=== PATIENT | female | born 1940 | race Caucasian/White ===

== ENCOUNTER → 2016-10-18 | Outpatient (CLI) | payer OTHER ==
[2016-10-18 07:51] LABS: HEMATOCRIT 47.9 % (37.0-47.0); MEAN CORPUSCULAR HEMOGLOBIN 29.6 PG (27-31); MEAN CORPUSCULAR HGB CONC 33.4 g/dL (33-37); MEAN CORPUSCULAR VOLUME 88.5 FL (81-99); MEAN PLATELET VOLUME 10.4 FL (7.4-12.2); RED BLOOD COUNT 5.41 10^6/uL (4.20-5.40)
[2016-10-18 08:03] LABS: CALCIUM 9.2 mg/dL (8.7-10.7); CHOL/HDL RATIO 3.6 RATIO (0-4.0); LDL CHOLESTEROL,CALCULATED 79.8 mg/dL; SERUM ALBUMIN 3.8 g/dL (3.5-4.8)
== END ==
LOC: LAB 07:28
PROVIDERS: ATTEND Family Medicine
DX: E78.5 Hyperlipidemia, unspecified (principal); I10 Essential (primary) hypertension
CPT/HCPCS: 36415; 80053; 80061; 84443; 85027

== ENCOUNTER → 2016-11-18 | Outpatient (CLI) | payer OTHER | LOC: MOB LAB 12:20 | PROVIDERS: ATTEND Nurse Practitioner Family | DX: I50.9 Heart failure, unspecified (principal); R60.0 Localized edema; I10 Essential (primary) hypertension; E78.5 Hyperlipidemia, unspecified | CPT/HCPCS: 36415; 83880; G0463; 99214 ==

== ENCOUNTER → 2016-11-21 | Outpatient (CLI) | payer OTHER | LOC: US 08:28 | PROVIDERS: ATTEND Nurse Practitioner Family | DX: R60.0 Localized edema (principal); G45.9 Transient cerebral ischemic attack, unspecified | CPT/HCPCS: 93306 ==

== ENCOUNTER 2019-02-25 08:31 | Observation (INO) ==
[2019-02-25] MEDS ORDERED: Sodium Chloride 0.9% 1,000 ML PRIMARY IV ONE (08:47)
[2019-02-25] MEDS ORDERED: CloNIDine Tab 0.1 MG TABLET PO ONE (08:56)
[2019-02-25 09:10] LABS: BASOPHILS # (AUTO) 0.05 10*3/UL; BASOPHILS % (AUTO) 0.7 % (0-1); EOSINOPHILS # (AUTO) 0.31 10*3/UL; EOSINOPHILS % (AUTO) 4.2 % (0-8); MEAN CORPUSCULAR HGB CONC 32.7 g/dL (33-37); MEAN CORPUSCULAR VOLUME 90.7 FL (81-99); MEAN PLATELET VOLUME 10.2 FL (7.4-12.2); MONOCYTES # (AUTO) 0.78 10*3/UL (0.3-0.8); MONOCYTES % (AUTO) 10.5 % (5-15); NEUTROPHILS # (AUTO) 4.39 10*3/UL; NEUTROPHILS % (AUTO) 58.7 % (50-80)
[2019-02-25 09:25] LABS: BUN/CREATININE RATIO 28.33 (6-20); SERUM ALBUMIN 4.3 g/dL (3.5-4.8)
[2019-02-25] MEDS ORDERED: HYDRALAZINE 20 MG/1 ML IVP ONE (09:35)
[2019-02-25] MEDS ORDERED: Magnesium Sulfate 1gm (Premix) 1 GM/100 ML BAG IV ONE (10:05)
[2019-02-25 10:14] LABS: PLATELET MORPHOLOGY COMMENT NORMAL MORPHOLOGY (NORM); RBC MORPHOLOGY COMMENT NORMAL MORPHOLOGY (NORM); WBC MORPHOLOGY COMMENT NORMAL MORPHOLOGY (NORM)
[2019-02-25 10:15] LABS: Erythrocyte Sediment Rate 16 MM/HR (0-20)
[2019-02-25] MEDS ORDERED: FUROSEMIDE 10 MG/1 ML - 2 ML VIAL IVP ONE (11:02)
[2019-02-25] MEDS ORDERED: CALCIUM CARBONATE 500 MG (TUMS) CHEWABLE TABLET PO PRN (12:37)
[2019-02-25] MEDS ORDERED: ONDANSETRON 4 MG/2 ML VIAL IVP PRN (12:37)
[2019-02-25] MEDS ORDERED: DOCUSATE 100 MG CAPSULE PO PRN (12:37)
[2019-02-25] MEDS ORDERED: LIDOCAINE W/ SODIUM BICARB 0.5 ML SYR SUBD PRN (12:37)
[2019-02-25] MEDS ORDERED: ACETAMINOPHEN 325 MG TABLET PO PRN (12:37)
[2019-02-25] MEDS: ATENOLOL 50 MG TABLET PO SCH (20:18)
[2019-02-25] MEDS: BENAZEPRIL HCL 20 MG TABLET PO SCH (20:18)
[2019-02-25] MEDS: CloNIDine Tab 0.1 MG TABLET PO SCH (20:18)
[2019-02-25] MEDS ORDERED: Pravastatin Tab 40 MG TAB PO SCH (21:00)
[2019-02-26 04:07] VITALS: RESP 16
[2019-02-26 04:53] LABS: BUN/CREATININE RATIO 27.14 (6-20)
[2019-02-26 06:36] VITALS: TEMP 97.2
[2019-02-26] MEDS: BENAZEPRIL HCL 20 MG TABLET PO SCH (08:34)
[2019-02-26] MEDS: CloNIDine Tab 0.1 MG TABLET PO SCH (08:37)
[2019-02-26] MEDS: ATENOLOL 50 MG TABLET PO SCH (08:46)
[2019-02-26] MEDS ORDERED: CHLORTHALIDONE 50 MG TABLET PO SCH (09:00)
[2019-02-26] MEDS ORDERED: VENLAFAXINE XR 37.5 MG CAP PO SCH (09:00)
[2019-02-26] MEDS ORDERED: ASPIRIN EC 81 MG TABLET PO SCH (09:00)
[2019-02-26] MEDS ORDERED: MAGNESIUM OXIDE 400 MG TABLET PO SCH (09:00)
[2019-02-26] MEDS ORDERED: HYDROCHLOROTHIAZIDE 25 MG TABLET PO SCH (09:00)
[2019-02-26] MEDS ORDERED: Spironolactone Tab 25 MG TAB PO ONE (09:44)
[2019-02-26] MEDS ORDERED: POTASSIUM CHLORIDE 20 MEQ TAB PO SCH (11:00)
[2019-02-26 11:24] VITALS: BP 144/68
[2019-02-26] MEDS ORDERED: Sodium Chloride 0.9% 250 ML IV ONE (12:45)
[2019-02-26 13:17] VITALS: O2SAT 95
[2019-02-26 14:22] LABS: BUN/CREATININE RATIO 21.25 (6-20)
[2019-02-27] MEDS ORDERED: Spironolactone Tab 25 MG TAB PO SCH (09:00)
[2019-03-01 10:34] LABS: Renin Activity, Plasma <0.6 ng/mL/h
== END 2019-02-26 15:13 | disposition home or self-care (01) ==
LOC: MED/SURG 08:31 → ER 08:31 → MED/SURG 12:03
PROVIDERS: ADMIT Internal Medicine; ATTEND Internal Medicine